=== PATIENT | male | born 1995 | race Hispanic/Latino ===

== ENCOUNTER 2019-06-02 08:49 | Emergency (ER) | payer SELFPAY ==
[~2019-06-02] VITALS: Ht 185.4 cm; Wt 72.6 kg
--- NOTE | 2019-06-02 10:20 | Diagnostic Imaging Report ---
EXAMINATION: FINGER LEFT INDICATION: Trauma COMPARISON: None FINDINGS: No acute fracture or dislocation. Alignment is anatomic. IMPRESSION: No acute osseous injury. Signed by: Jignesh Kendlal MD on 06/02/2019 10:17 AM
[2019-06-02] MEDS ORDERED: TETANUS/DIPHTHERIA TOX ADULT 0.5 ML SYR IM ONE (10:45)
[2019-06-02 11:18] VITALS: BP 132/80
== END 2019-06-02 11:31 | disposition home or self-care (01) ==
LOC: ER 08:49
DX: S67.02XA Crushing injury of left thumb, initial encounter (principal); S60.112A Contusion of left thumb with damage to nail, initial encounter; S61.012A Laceration without foreign body of left thumb without damage to nail, initial encounter; W23.1XXA Caught, crushed, jammed, or pinched between stationary objects, initial encounter; Y92.812 Truck as the place of occurrence of the external cause; Y99.0 Civilian activity done for income or pay; Z23 Encounter for immunization
CPT/HCPCS: 90471; 90714; 99283